=== PATIENT | male | born 1945 | race Caucasian/White ===

== ENCOUNTER 2019-05-26 21:59 | Emergency (ER) | payer MEDICARE, OTHER ==
[~2019-05-26] VITALS: Ht 167.6 cm; Wt 72.6 kg
--- OUTSIDE RECORDS SUMMARY | 2019-05-26 22:02 | XMS REPORT ---
Author Author [facility] Address Unknown Phone Unavailable Care Team Providers Care Chocolate Dipper Name Role Phone Unavailable Unavailable Payers Payer Name Policy Type Policy Number Effective Date Expiration Date Problems This patient has no known problems. Allergies, Adverse Reactions, Alerts Allergy Name Allergy Type Status Severity Reaction(s) Onset Date Inactive Date Treating Clinician Comments No Known Allergies DA Active U 2019-03-05 00:00:00 Medications This patient has no known medications. Encounters Start Date/Time End Date/Time Encounter Type Admission Type Attending Clinicians [facility] Facility Care Department Encounter ID 2017-07-09 00:00:00 2017-07-09 00:00:00 Outpatient [facility] [id number] 2017-07-08 00:00:00 2017-07-08 00:00:00 Outpatient [facility] [id number] 2017-07-04 09:03:57 2017-07-04 09:03:57 Outpatient [facility] [id number] 2017-04-22 15:12:59 2017-04-22 15:12:59 Outpatient [facility] [id number] 2017-03-21 14:12:13 2017-03-21 14:12:13 Outpatient [facility] [id number] 2017-02-21 10:16:08 2017-02-21 10:16:08 Outpatient [facility] [id number] 2017-02-21 09:51:44 2017-02-21 09:51:44 Outpatient [facility] [id number] 2017-02-21 08:17:35 2017-02-21 08:17:35 Outpatient [facility] [id number] 2017-01-22 00:00:00 2017-01-22 00:00:00 Outpatient [facility] [id number] 2016-12-05 09:27:04 2016-12-05 09:27:04 Outpatient [facility] [id number] 2016-12-05 08:08:23 2016-12-05 08:08:23 Outpatient [facility] [id number] 2016-11-28 00:00:00 2016-11-28 00:00:00 Outpatient [facility] [id number] 2016-11-23 10:29:04 2016-11-23 10:29:04 Outpatient [facility] [id number] 2016-11-14 00:00:00 2016-11-14 00:00:00 Outpatient [facility] [id number] 2016-11-13 00:00:00 2016-11-13 00:00:00 Outpatient [facility] [id number] 2016-11-06 11:02:58 2016-11-06 11:02:58 Outpatient [facility] [id number] 2016-10-02 00:00:00 2016-10-02 00:00:00 Outpatient [facility] [id number] 2016-09-13 00:00:00 2016-09-13 00:00:00 Outpatient [facility] [id number] 2016-08-29 14:02:25 2016-08-29 14:02:25 Outpatient [facility] [id number] 2016-08-17 09:52:41 2016-08-17 09:52:41 Outpatient [facility] [id number] Results Test Description Test Time Test Comments Text Results Atomic Results Result Comments - XR FOOT 3 + V RT 2019-03-05 21:11:00 FAX: Magi Jasmine NP Ava: B St: DEP Name: VICKEY PEREZDDIE [facility] : 1945 Age/S: 73/M [address] [facility] Unit #: [id number] [place]: [place] [address] Phys: Magi Jasmine NP Acct: [id number] Dis Date: Status: DEP ER PHONE #: [phone] Exam Date: 03/05/2019 1827 FAX #: [phone] Reason: right foot pain EXAMS: CPT CODE: [id number] XR FOOT 3 + [place] RT [id number] REASON FOR EXAM: right foot pain EXAM ORDER DATE: 03/05/2019 6:20 PM Ordering: Magi Jasmine NP Attending: Karma Lopes MD Location: PROCEDURE: - XR FOOT 3 + V RT FINDINGS: 3 views of the right foot were obtained. The osseous structures are unremarkable in size and shape. Mild narrowing of the 1st MTP with osteophytes present. No evidence of fracture. The phalanges are intact. The metatarsal and tarsal bones are unremarkable IMPRESSION: Degenerative changes most pronounced at the 1st MTP. No acute findings at 2110 Reported and signed by: Ezekiel Graff M.D. CC: Magi Jasmine NP Technologist: Helen Guardado) Trnscrd Date/Time/By: 03/05/2019 (2110) : By: [email or web address] Orig Print D/T: S: 03/05/2019 (2113) PAGE 1 Signed Report
--- NOTE | 2019-05-26 23:37 | NUR ---
DR. GE IN TRIAGE EXTENSIVELY EDUCATING PT REGARDING BP CONTROL AND HAVING A PCP TO FOLLOW FOR FURTHER WORKUP. PT HAS NO FURTHER QUESTIONS AT THIS TIME.
[2019-05-26] MEDS ORDERED: CLONIDINE HCL 0.1 MG TAB PO ONE (23:45)
[2019-05-27 01:15] VITALS: BP 130/79
== END 2019-05-27 01:15 | disposition home or self-care (01) ==
LOC: ER 21:59
DX: I10 Essential (primary) hypertension (principal)
CPT/HCPCS: 99283

== ENCOUNTER → 2020-03-01 | Day surgery (SDC) | payer MEDICARE, OTHER ==
[~2020-03-01] MED LIST: ASPIRIN81 MG PO; HYDROCHLOROTH12.5 MG PO; LIPITOR20 MG PO; MECLIZINE HCL12.5 MG PO; NORVASC10 MG PO; OR PHACO EYE KIT ONE; PREOP PHACO EYE KIT ONE
[2020-03-01 10:55] VITALS: BP 144/83
== END | disposition home or self-care (01) ==
LOC: OR 08:08
PROVIDERS: ATTEND Ophthalmology
DX: H25.13 Age-related nuclear cataract, bilateral (principal); E11.22 Type 2 diabetes mellitus with diabetic chronic kidney disease; I12.9 Hypertensive chronic kidney disease with stage 1 through stage 4 chronic kidney disease, or unspecified chronic kidney disease; N18.30 Chronic kidney disease, stage 3 unspecified; I25.10 Atherosclerotic heart disease of native coronary artery without angina pectoris; Z95.5 Presence of coronary angioplasty implant and graft; E78.5 Hyperlipidemia, unspecified; N40.1 Benign prostatic hyperplasia with lower urinary tract symptoms; R35.0 Frequency of micturition; Z01.810 Encounter for preprocedural cardiovascular examination; Z01.812 Encounter for preprocedural laboratory examination; Z20.828 Contact with and (suspected) exposure to other viral communicable diseases; Z87.891 Personal history of nicotine dependence; Z79.899 Other long term (current) drug therapy; Z79.82 Long term (current) use of aspirin
CPT/HCPCS: 36415; 66984; 82948; 93005; U0002

== ENCOUNTER → 2020-03-16 | Day surgery (SDC) | payer MEDICARE, OTHER ==
[2020-03-14 09:59] LABS: BASOPHILS % 0.5 % (0.0-1.0); EOSINOPHILS # (AUTO) 0.4 (0.0-0.4); EOSINOPHILS % 4.9 % (0.0-6.0); HEMATOCRIT 37.5 % (38.2-49.6); LYMPHOCYTES # (AUTO) 1.6 (1.0-3.2); MEAN CORPUSCULAR HEMOGLOBIN 31.2 pg (28-32); MEAN CORPUSCULAR HGB CONC 34.7 g/dL (31-35); MEAN CORPUSCULAR VOLUME 89.9 fL (81-99); MONOCYTES % 11.7 % (4.4-11.3); NEUTROPHILS # (AUTO) 5.6 (2.1-6.9); NEUTROPHILS % 64.4 % (38.7-80.0); PLATELET COUNT 278 x10e3/uL (140-360); RED BLOOD COUNT 4.17 x10e6/uL (4.3-5.7); RED CELL DISTRIBUTION WIDTH 13.3 % (11.7-14.4)
[~2020-03-16] MED LIST changes: +FENTANYL CITRATE/PF 100MCG/2 ML INJ ONE; +MIDAZOLAM HCL 2 MG/2 ML VIAL ONE
[2020-03-16 14:30] VITALS: BP 147/89
== END | disposition home or self-care (01) ==
LOC: OR 10:52
PROVIDERS: ATTEND Ophthalmology
DX: H25.12 Age-related nuclear cataract, left eye (principal); E11.9 Type 2 diabetes mellitus without complications; K21.9 Gastro-esophageal reflux disease without esophagitis; I25.10 Atherosclerotic heart disease of native coronary artery without angina pectoris; I10 Essential (primary) hypertension; R42 Dizziness and giddiness; Z01.812 Encounter for preprocedural laboratory examination; Z20.828 Contact with and (suspected) exposure to other viral communicable diseases; Z79.82 Long term (current) use of aspirin; Z95.5 Presence of coronary angioplasty implant and graft
CPT/HCPCS: 36415; 66984; 85025; U0002; V2632